=== PATIENT | male | born 1975 | race Caucasian/White ===

== ENCOUNTER 2017-02-24 16:34 | Emergency (ER) | payer MEDICAID ==
[~2017-02-24] VITALS: Ht 182.9 cm; Wt 154.0 kg
[2017-02-24] MEDS ORDERED: BACITRACIN ZINC OINT UDPKT TOP ONE (20:15)
[2017-02-24] MEDS ORDERED: KETOROLAC 30MG/ML VIAL IM ONE (20:15)
[2017-02-24] MEDS ORDERED: LIDOCAINE HCL 1% 20ML VIAL (Pyxis) INJ INFIL ONE (23:15)
[2017-02-25 00:14] VITALS: BP 151/86
== END 2017-02-25 00:18 | disposition home or self-care (01) ==
LOC: ER 16:40
DX: S51.812A Laceration without foreign body of left forearm, initial encounter (principal); F12.10 Cannabis abuse, uncomplicated; J45.909 Unspecified asthma, uncomplicated; Z72.0 Tobacco use; W26.0XXA Contact with knife, initial encounter; Y93.89 Activity, other specified; Y92.89 Other specified places as the place of occurrence of the external cause; Y99.8 Other external cause status
CPT/HCPCS: 12001; 73090; 96372; 99284; J1885; J3490; X7700; Z7610

== ENCOUNTER 2021-03-23 18:49 | Emergency (ER) | payer MEDICAID ==
[~2021-03-23] VITALS: Ht 182.9 cm; Wt 168.0 kg
[2021-03-23] MEDS ORDERED: PREDNISONE 20MG TABLET PO ONE (21:15)
[2021-03-23] MEDS ORDERED: P50 MT (21:39)
[2021-03-23] MEDS ORDERED: ALBU18HF2 IH (21:39)
[2021-03-23] MEDS ORDERED: NEOM10SO7 LEFT EAR (21:40)
[2021-03-23 22:26] VITALS: BP 137/90
== END 2021-03-23 22:29 | disposition home or self-care (01) ==
LOC: ER 18:49
DX: H60.92 Unspecified otitis externa, left ear (principal); J98.01 Acute bronchospasm; Z20.822 Contact with and (suspected) exposure to COVID-19; Z79.51 Long term (current) use of inhaled steroids
CPT/HCPCS: 99283; C9803; J7512; U0003; U0005